=== PATIENT | male | born 2000 | race Caucasian/White ===

== ENCOUNTER 2020-12-17 21:50 | Emergency (ER) | payer OTHER, SELFPAY ==
[2020-12-17 21:55] VITALS: BP 171/97; PULSE 102; RESP 16; TEMP 36.8; O2SAT 100
[2020-12-17 22:32] LABS: Basophils Percent Auto 0.1 % (0.2-1.2); Eosinophils Absolute Auto 0.2 K/mm3 (0-0.3); Eosinophils Percent Auto 3.4 % (0-4.4); Hematocrit 46.7 % (42.0-52.0); Hemoglobin 17.3 g/dL (14.0-18.0); Immature Granulocyte Absolute 0.03 K/mm3 (0.00-0.031); Immature Granulocyte Percent A 0.4 % (0-0.5); Lymphocytes Absolute Auto 2.26 K/mm3 (0.9-3.2); Lymphocytes Percent Auto 33.8 % (18.3-44.2); Mean Corpuscular Hemoglobin 32.5 pg (26-34); Mean Corpuscular Volume 87.8 fl (80-100); Mean Platelet Volume 8.4 fl (7.4-10.4); Monocytes Absolute Auto 0.5 K/mm3 (0.1-0.6); Neutrophils Absolute Auto 3.7 K/mm3 (1.3-6.7); Neutrophils Percent Auto 55.3 % (45.5-73.1); Platelet Count Result 238 k/mm3 (150-375); Red Blood Count 5.32 M/mm3 (4.6-6.20); Red Cell Distribution Width 12.2 % (11.5-14.5); White Blood Count 6.7 K/mm3 (4.5-10.0)
[2020-12-17 22:45] LABS: Alanine Aminotransferase 16 U/L (4-50); Albumin Level 4.7 g/dL (3.5-5.1); Alkaline Phosphatase 85 U/L (38-126); Anion Gap 9 mmol/L (8-16); Aspartate Amino Transferase 32 U/L (17-59); Bilirubin,Total 0.4 mg/dL (0.2-1.3); Blood Urea Nitrogen 6 mg/dL (9-20); Calcium 9.6 mg/dL (8.4-10.2); Carbon Dioxide 27 mmol/L (22-30); Chloride 109 mmol/L (98-107); Estimated Glomerular Filt Rate > 60; Glucose 109 mg/dL (75-110); Potassium 3.6 mmol/L (3.4-5.0); Sodium 145 mmol/L (137-145)
[2020-12-17 22:50] LABS: Ethanol 281 mg/dL (<10)
--- NOTE | 2020-12-17 23:01 | ED.PSYCH ---
HPI - Psych General Chief Complaint: Psychiatric Symptoms Stated Complaint: Depression Time Seen by Provider: 12/17/20 22:32 History of Present Illness HPI Narrative: 20 yo male brought in by a police department secretary who told us that he wanted a voluntary psych evaluation. He reportedly lost a loved one recently and has been drinking nonstop since that time. He denies any suicidal or homicidal ideations. His girlfriend reports that she is concerned because he is depressed and will not talk to anyone about it. No explicit suicidal intentions expressed. She is also worried because he is frequently aggressive when he ahs been drinking. Related Data Allergies Allergy/AdvReac Type Severity Reaction Status Date / Time No Known Allergies Allergy Uncoded 05/10/19 01:21 Review of Systems Review of Systems: ROS unobtainable: Yes other (very limited by intoxication) COUNTS INCLUDE 234 BEDS AT THE [facility] Social History Social History (Updated 12/18/20 @ 20:42 by Raul Brar MD) Smoking status: Current every day smoker Tobacco type: e-cigarettes/vaping Substance use type: unknown and other Exam Const: General: healthy appearing, no acute distress and alert HENMT: Head: normal to inspection Neck: Neck: normal visual inspection Resp: Effort & Inspection: normal respiratory effort Auscultation: clear to auscultation bilaterally Cardio: Rate: regular rate Rhythm: regular rhythm Skin: General skin exam: normal color Neuro: Speech: Abnormal speech present slurred Gait exam (Neuro): Normal gait present Psych: Thought content: No Suicidality present and No Homicidality present Insight: Limited insight present (Psych) Judgement: Limited judgement present (Psych) Course Vital Signs Vital signs: Vital Signs Temperature 36.8 C 12/17/20 21:55 Pulse Rate 102 H 12/17/20 21:55 Respiratory Rate 16 12/17/20 21:55 Blood Pressure 171/97 H 12/17/20 21:55 Pulse Oximetry 100 12/17/20 21:55 Temperature 36.8 C 12/17/20 21:55 Pulse Rate 102 H 12/17/20 21:55 Respiratory Rate 16 12/17/20 21:55 Blood Pressure 171/97 H 12/17/20 21:55 Pulse Oximetry 100 12/17/20 21:55 MDM - Psych MDM Narrative Medical decision making narrative: He presented vonuntarily, but very quickly decided that he did not want to stay. We attempted to keep him there for his own safety due to intoxication, but had no indication to hold him from a psychological stand point. Ultimately he eloped. He was picked up by police. He did not want to return, so they will be driving him home. Differential Diagnosis Differential diagnosis: Likely depression and drug-induced psychotic disorder Medical Records Attestation: I reviewed the patient's medical records. Lab Data Attestation: I reviewed the patient's lab results. Result diagrams: 12/17/20 22:25 12/17/20 22:25 Labs: Lab Results 12/17/20 12/17/20 12/17/20 Range/Units 22:25 22:25 22:25 WBC 6.7 (4.5-10.0) K/mm3 RBC 5.32 (4.6-6.20) M/mm3 Hgb 17.3 (14.0-18.0) g/dL Hct 46.7 (42.0-52.0) % MCV 87.8 (80-100) fl MCH 32.5 (26-34) pg MCHC 37.0 H (32-36) g/dl RDW 12.2 (11.5-14.5) % Plt Count 238 (150-375) k/mm3 MPV 8.4 (7.4-10.4) fl Immature Gran % (Auto) 0.4 (0-0.5) % Neut % (Auto) 55.3 (45.5-73.1) % Lymph % (Auto) 33.8 (18.3-44.2) % [place] % (Auto) 7.0 (2.6-8.5) % Eos % (Auto) 3.4 (0-4.4) % Baso % (Auto) 0.1 L (0.2-1.2) % Lymph # (Auto) 2.26 (0.9-3.2) K/mm3 [place] # (Auto) 0.5 (0.1-0.6) K/mm3 Eos # (Auto) 0.2 (0-0.3) K/mm3 Baso # (Auto) 0.0 (0.0-0.1) K/mm3 Abs Immat Gran (auto) 0.03 (0.00-0.031) K/mm3 Absolute Neuts (auto) 3.7 (1.3-6.7) K/mm3 Absolute Nucleated RBC 0.0 (0.0-0.012) K/mm3 Nucleated RBC % 0.0 (0.0-0.2) % Sodium 145 (137-145) mmol/L Potassium 3.6 (3.4-5.0) mmol/L Chloride 109 H (98-107) mmol/L Carbon Dioxide 27 (22-30) mmol/L Anion Gap
--- NOTE | 2020-12-17 23:20 | PC.NURSE ---
PD contacted about patient elopement. They will try to locate patient at this time.
--- NOTE | 2020-12-17 23:21 | PC.NURSE ---
pt not in room apparently left the ed , police call.
--- NOTE | 2020-12-17 23:30 | PC.NURSE ---
PD called to say they are with the patient at this time, patient is requesting to go home. Explained to Monroe VALLECILLO that patient is denying si/hi. Pt appears to be intoxicated. Pt states he just wanted someone to talk to. YOLY Brar spoke with patient girlfriend and she says he has been drinking and can at times become violent when he is intoxicated. YOLY Brar states we have no reason to hold the patient. I explained this to PD.
== END 2020-12-17 23:30 | disposition left against medical advice (07) ==
PROVIDERS: Emergency Provider Emergency Medicine
DX: F10.129 Alcohol abuse with intoxication, unspecified (principal); Y90.7 Blood alcohol level of 200-239 mg/100 ml
CPT/HCPCS: 36415; 80053; 80307; 84443; 85025; 99283